=== PATIENT | female | born 1965 | race Caucasian/White ===

== ENCOUNTER 2018-08-09 10:12 | Emergency (ER) | payer SELFPAY ==
[2018-08-09] MEDS ORDERED: Albuterol/Ipratropium NEB.SOL* Albuterol 2.5 MG/Ipratropium 0.5 MG 3 ML INH ONE (12:13)
--- NOTE | 2018-08-09 12:13 | UC ---
Throat Pain/Nasal Damian HPI - HPI Summary HPI Summary: 53 y/o female presents to the urgent care c/o URi symptoms for the past 4 days. She also has a sore throat, and B/L ear pressure. Pt also states productive cough w/ yellowish phlegm and wheezing since last night. Pt has PMHX of COPD. Pain w/ swallowing is 5/10. Pt denies fever, SOB, chest pain, abdominal pain, N /V/D. Pt has not taken anything to alleviate symptoms. - History of Current Complaint Chief Complaint: UCRespiratory Stated Complaint: SORE THROAT EAR PAIN CONGESTION Time Seen by Provider: 08/09/18 11:25 Hx Obtained From: Patient ?: No Onset/Duration: Gradual Onset, Lasting Days - 4 days, Still Present, Worse Since - yesterday Severity: Moderate Pain Intensity: 5 - sore throat Pain Scale Used: 0-10 Numeric Cough: Productive - Allergies/Home Medications Allergies/Adverse Reactions: Allergies Allergy/AdvReac Type Severity Reaction Status Date / Time atorvastatin [From Lipitor] Allergy body aches Verified 08/09/18 10:38 succinylcholine Allergy resp issues Verified 08/09/18 10:38 Home Medications: Home Medications Aspirin 81 mg CHEW TAB* 1 tab PO DAILY 08/09/18 [History Confirmed 08/09/18] Clopidogrel TAB* [Plavix TAB*] 75 mg PO DAILY 08/09/18 [History Confirmed ] Crestor 10 mg PO DAILY 08/09/18 [History Confirmed 08/09/18] Hydrochlorothiazide TAB* [Hydrodiuril TAB*] 25 mg PO DAILY 08/09/18 [History Confirmed 08/09/18] Levalbuterol HFA INHALER* [Xopenex Hfa Inhaler*] 1 puff INH DAILY 08/09/18 [ History Confirmed 08/09/18] Metoprolol Tartrate TAB* [Lopressor TAB*] 25 mg PO DAILY 08/09/18 [History Confirmed 08/09/18] PMH/Surg Hx/FS Hx/Imm Hx Previously Healthy: Yes Endocrine History: Dyslipidemia Cardiovascular History: Cardiac Disease, Hypertension Respiratory History: COPD Other Respiratory History: emphysema - Surgical History Surgical History: Yes Surgery Procedure, Year, and Place: pyloric stenosis as an infant appy tubal, neck tumor removed volvectomy 2 cardiac stents - Family History Known Family History: Positive: Cardiac Disease, Hypertension - Social History Occupation: Employed Full-time Lives: With Family Alcohol Use: None Substance Use Type: None Smoking Status (MU): Heavy Every Day Tobacco Smoker Review of Systems All Other Systems Reviewed And Are Negative: Yes Constitutional: Positive: Negative Skin: Positive: Negative Eyes: Positive: Negative ENT: Positive: Sore Throat, Nasal Discharge - yellowish, Sinus Congestion Respiratory: Positive: Cough - productive w/ yellowish phlegm, Other - wheezing Cardiovascular: Positive: Negative Gastrointestinal: Positive: Negative Genitourinary: Positive: Negative Motor: Positive: Negative Neurovascular: Positive: Negative Musculoskeletal: Positive: Negative Neurological: Positive: Negative Psychological: Positive: Negative Is Patient Immunocompromised?: No Physical Exam - Summary Physical Exam Summary: Vital Signs Reviewed: Yes General: well developed, well nourished female sitting in the examining table w/ o any apparent distress Eyes: Positive: Conjunctiva Clear - PERRLA, EOMI, fundi grossly normal ENT: Positive: Normal ENT inspection, Hearing grossly normal, Pharynx normal, Nasal congestion - edematous and erythematous nasal mucosa, Nasal drainage - yellowish drainage, TMs normal. Negative: Tonsillar swelling, Tonsillar exudate Neck: Positive: Supple, Nontender, No Lymphadenopathy Respiratory: no orthopnea or dyspnea. Able to speak in full sentences, no retractions or accessory muscle use, no tripod position, stridor, or head bobbing. Positive breath sounds bilaterally. diffuse scattered wheezing and rhonchi on b/L lungs, no crackles or rales. Cardiovascular: Positive: RRR, No Murmur, Pulses Normal, Brisk Capillary Refill Abdomen Description: Positive: Nontender, No Organomegaly, Soft. Negative: CVA Tenderness (R), CVA Tenderness (L) Bowel Sounds: Positive: Present Musculoskeletal Exam: Normal Musculoskeletal: Positive: Strength Intact, ROM Intact, No Edema Neurological Exam: Normal Psychological Exam: Normal Skin Exam: Normal Triage Information Reviewed: Yes Vital Signs: Initial Vital Signs Temp 98 F 08/09/18 10:33 Pulse 74 08/09/18 10:33 Resp 17 08/09/18 10:33 BP 123/71 08/09/18 10:33 Pulse Ox 99 08/09/18 10:33 Throat Pain/Nasal Course/Dx - Course Course Of Treatment: 53 y/o female presents to the urgent care c/o URi symptoms for the past 4 days. She also has a sore throat, and B/L ear pressure. Pt also states productive cough w/ yellowish phlegm and wheezing since last night. Pt has PMHX of COPD. Pain w/ swallowing is 5/10. Pt denies fever, SOB, chest pain , abdominal pain, N/V/D. Pt has not taken anything to alleviate symptoms. Hx obtained. Pt w/ scattered wheezes on bilaterally lungs, and mild rhonchi, good air entry B/L on examination. O2Sat:99%. Pt given Prednisone PO and Duoneb Treatment to alleviate symptoms. Pt tolerated well treatment and lungs improved,and wheezing resolved. Patient prescribed Doxyxycline PO, Prednisone taper dose, Albuterol neb. and Tessalon Tabs to alleviate symptoms as directed below. The patient was recommended to increase fluid intake. Take medications as recommended. Pt advised to returned to the clinic or f/u w/ her PCP if symptoms do not improve. All D/C instructions explained. Patient understood and agree w/ plan of care. Pt left clinic hemodynamically stable , A&OX3 - Differential Dx/Diagnosis Differential Diagnosis/HQI/PQRI: Influenza, Pharyngitis, URI, Other - COPD exacerbation due to bronchitis, asthma, pneumonia Provider Diagnosis: COPD (chronic obstructive pulmonary disease) with acute bronchitis, Wheezing Discharge - Sign-Out/Discharge Documenting (check all that apply): Patient Departure - d/c home All imaging exams completed and their final reports reviewed: Yes - Discharge Plan Condition: Stable Disposition: HOME Prescriptions: Albuterol/Ipratropium NEB.YUKI* [Duoneb (Albuterol 2.5 MG/Ipratropium 0.5 MG)] 1 neb INH Q6H PRN #1 box PRN Reason: Wheezing DOXYcycline CAP(*) [DOXYcycline 100MG CAP(*)] 100 mg PO BID #20 cap predniSONE TAB* [Deltasone 20 MG TAB*] 20 mg PO DAILY #8 tab Patient Education Materials: Acute Bronchitis (ED), COPD (Chronic Obstructive Pulmonary Disease) (ED) Referrals: [facility] [Outside] - 3 Days Additional Instructions: 1-Please take full course of antibiotic to avoid resistance. Take Prednsione PO as directed starting tomorrow. first dose given today 2-Take Delsym PO or Robitussin PO tabs as directed and use the duoneb nebulizer or your Inhaler to alleviate cough. Increase fluid intake, rest and eat well. 3- If symptoms do not improve or worsen or your develop SOB with fever and severe wheezing please go immediately to the ER further evaluation and treatment. 4- F/u with your PCP in 3 days for further management on your COPD - Billing Disposition and Condition Condition: STABLE Disposition: Home
[2018-08-09] MEDS ORDERED: predniSONE TAB* 20 MG PO ONE (12:15)
== END 2018-08-09 13:25 | disposition home or self-care (01) ==
LOC: UCEAST 10:12
DX: J44.9 Chronic obstructive pulmonary disease, unspecified (principal); R06.2 Wheezing; E78.5 Hyperlipidemia, unspecified; I25.10 Atherosclerotic heart disease of native coronary artery without angina pectoris; I10 Essential (primary) hypertension; Z95.5 Presence of coronary angioplasty implant and graft; Z79.01 Long term (current) use of anticoagulants; Z88.8 Allergy status to other drugs, medicaments and biological substances; F17.200 Nicotine dependence, unspecified, uncomplicated
CPT/HCPCS: 71046; 87651; 99203; A9270-GY; G0463; J7512